=== PATIENT | female | born 1990 | race Caucasian/White ===

== ENCOUNTER 2023-09-24 15:22 | Outpatient (CLI) | payer OTHER, SELFPAY ==
--- NOTE | ~2023-09-24 | US_ITS ---
EXAMINATION: US OB /maternal detail DATE: 09/24/2023 17:14 INDICATION: anatomic survey. TECHNIQUE: Real-time ultrasound of the pelvis was performed. COMPARISON: None. FINDINGS: There is a single living fetus in vertex presentation. The placenta is anterior. heart rate is 130 beats per minute (bpm). The cervical length is 3.7 cm on transabdominal images, which is normal. The amniotic fluid index is 14.2 cm, which is normal. The following biometric data were obtained: Biparietal diameter (BPD): 4.5 cm; head circumference (HC): 18.0 cm; abdominal circumference (AC): 14 .0 cm; femur length (FL): 3.2 cm. These measurements are discordant with high HC/AC ratio. Estimated weight is 307 g +/- 46 g, which correlates with the 22nd percentile when 02/10/24 is u sed as estimated date of delivery. As single measurements, these parameters are each equal to the following estimated gestational ages: BPD: 19 weeks 4 days. HC: 20 weeks 3 days. AC: 19 weeks 3 days. FL: 19 weeks 6 days. estimated gestational age based solely on measurements from this exam is 19 weeks 6 days +/- 1 weeks 3 days. The cerebral ventricles, cerebellum, cisterna magna, nuchal fold, and visualized portions of the spin e are normal. The heart is normal. The diaphragm, stomach, kidneys, and bladder are normal. There are two umbilical arteries to yield a 3-vessel cord. The cord insertion is normal. IMPRESSION: 1. Single living fetus in vertex presentation. 2. Estimated weight is 307 g +/- 46 g, which correlates with the 22nd percentile when 02/10/24 is used as estimated date of delivery. 3. Normal anatomic survey. 4. Discordant biometrics with high HC/AC ratio. Reviewed, dictated and finalized at location A. IMPRESSION: 1. Single living fetus in vertex presentation. 2. Estimated weight is 307 g +/- 46 g, which correlates with the 22nd pe rcentile when 02/10/24 is used as estimated date of delivery. 3. Normal anatomic survey. 4. Discordant biometrics with high HC/AC ratio.
== END 2023-09-24 15:23 | disposition home or self-care (01) ==
LOC: ANHIMG 15:26
PROVIDERS: PCP Obstetrics & Gynecology; Visit Provider Obstetrics & Gynecology
DX: Z36.9 Encounter for antenatal screening, unspecified (principal)
CPT/HCPCS: 76805